=== PATIENT | female | born 1940 | race Caucasian/White ===

== ENCOUNTER 2016-08-09 07:51 | Day surgery (SDC) | payer MEDICARE ==
[~2016-08-09 07:51] MED LIST: RINGERS SOLUTION,LACTATED 1,000 ML IV PRN
--- OUTSIDE RECORDS SUMMARY | 2016-08-09 07:55 | XMS REPORT | Continuity of Care Document ---
:1940 Author Organization [facility] ([facility]) [place] [address] Phone [phone] Care Team Providers Name Role Phone Mar Rodriguez Primary Care Provider [phone] Source Comments This disclosure is being made pursuant to the Care Everywhere program, applicable federal and state laws, and may not contain all informaitonavailable regarding this patient.[facility] ([facility]) Active Allergies and Adverse Reactions Allergen Noted Date Severity Reactions Comments Bupropion Hcl 09/01/2011 OTHER tremors Cilostazol 03/15/2014 Angioedema,Anaphylaxis Codeine 09/01/2011 Nausea & Vomiting Morphine 03/15/2014 Nausea & Vomiting Sertraline 09/01/2011 OTHER tremors Current Medications Prescription Sig. Disp. Refills Start Date End Date Status ALPRAZolam 0.25 mg Take 0.5 mg by mouth Active tablet daily as needed pyridoxine (VITAMIN Take 100 mg by mouth Active B-6) 100 mg tablet daily. Vitamin D3-Menaquinone Take by mouth 2 Active 7 (D3 + K2 DOTS) times daily. 1000-90 unit-mcg TbDL [id number]-dyn-epa-fish Take 2,000 mg by Active oil (OMEGA 3) 350-400 mouth daily. mg Cap lisinopril 40 mg Take 40 mg by mouth Active tablet daily. glipiZIDE 5 mg tablet Take 5 mg by mouth Active daily. levothyroxine 150 mcg Take 175 mcg by mouth Active tablet every morning before breakfast. docusate (COLACE) 100 Take 1 Cap by mouth 2 60 Cap 0 04/10/2014 Active mg capsule times daily. Indications: CONSTIPATION cinnamon bark Take 500 mg by mouth Active (CINNAMON) 500 mg daily capsule FLUoxetine 10 mg 11/18/2015 Active tablet tiZANidine 4 mg tablet Take 4 mg by mouth 2 Active times daily. LYSINE PO Active TURMERIC (BULK) NA Active BOSWELLIA KEN Active EXTRACT (BOSWELLIA KEN XT (BULK) NA ) magnesium citrate PO Active aspirin 81 mg EC Take 81 mg by mouth Active tablet daily. Active Problems Problem Noted Date Neck mass 04/09/2014 DM (diabetes mellitus) 04/09/2014 HTN (hypertension) 04/09/2014 Hypothyroidism 03/19/2014 Preop cardiovascular exam 03/19/2014 Atypical chest pain 03/19/2014 Essential hypertension 03/19/2014 Squamous papilloma 03/15/2014 Oral lesion 09/01/2011 Social History Tobacco Use Types Packs/Day Years Used Date Former Smoker Cigarettes 0.5 5 Quit: 08/31/2004 Smokeless Tobacco: Never Used Tobacco Cessation:Counseling Given: Yes Comments: Alcohol Use Drinks/Week oz/Week Comments No Last Filed Vital Signs Vital Sign Reading Time Taken Blood Pressure 125/60 01/14/2016 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 Pulse 72 01/14/2016 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 Temperature 37 C (98.6 F) 01/14/2016 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 Respiratory Rate 14 04/10/2014 8:00 AM TYPEWRITER REPAIRER Height 1.689 m (5' 6.5") 01/14/2016 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 Weight 85.4 kg (188 lb 4.4 oz) 01/14/2016 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 Body Mass Index 29.94 01/14/2016 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 Oxygen Saturation 93% 04/10/2014 8:00 AM TYPEWRITER REPAIRER Plan of Care Health Maintenance Due Date Last Done Comments Hepatitis B Vaccine (1 of 3 - Primary Series) 1940 Tdap Vaccine 01/26/1951 DIABETIC: Cholesterol 1959 Diabetic: Hdl 1959 DIABETIC: Hemoglobin A1C 1959 Diabetic: Ldl 1959 DIABETIC: Microalbumin 1959 DIABETIC: Triglycerides 1959 Td Vaccine 1959 Mammogram 1981 Colonoscopy 1991 Zoster Vaccine 2001 Osteoporosis Screening (DXA Bone Density) 2006 Pneumococcal Vaccine (1 of 2 - PCV13) 2006 DIABETIC: Foot Exam 03/19/2014 DIABETIC: Retinal Eye Exam 03/19/2014 Influenza Vaccine: Seasonal (#1) 10/06/2015 Results from Last 3 Months Not on file
[2016-08-09] MEDS ORDERED: RINGERS SOLUTION,LACTATED 1,000 ML IV ONE (08:37)
[2016-08-09] MEDS ORDERED: RINGERS SOLUTION,LACTATED 1,000 ML IV PRN (09:32)
[2016-08-09 10:46] VITALS: BP 131/83
--- NOTE | 2016-08-09 16:40 | OR ---
Operative Report - Dictated Report Narrative: OPERATIVE REPORT DATE OF OPERATION: 08/09/2016 PREOPERATIVE DIAGNOSIS: No prior dedicated colon studies POSTOPERATIVE DIAGNOSIS: 3 mm polyps in the cecum, at 60 cm, at 45 cm ( pathology pending). Diverticulosis OPERATION: Colonoscopy with hot biopsy forceps polypectomies 3 SURGEON: Shae Anguiano MD ANESTHESIA: DIXON Fish CRNA INDICATIONS FOR PROCEDURE: The patient is a 76-year-old female referred by Cordell SHELTON. She has had no previous complete dedicated colon studies. She has had abdominal discomfort FINDINGS: Diverticulosis. 3 mm polyp in the cecum, at 60 cm, at 45 cm ( pathology pending) NARRATIVE OF PROCEDURE: The patient was identified in the holding area, and prior to the administration of anesthetic, a multidisciplinary timeout was observed. With the patient in the left lateral position and after the administration of intravenous sedation, the perineum was inspected. There was no evidence of pilonidal disease or skin breakdown. The external appearance of the anus was normal. Sphincter tone was good. The flexible fiberoptic colonoscope was inserted into the rectum which was insufflated with air. The rectal mucosa and submucosal vascular pattern appeared normal, the prep was seen to be complete. The scope was advanced through the sigmoid colon, which contained numerous large non-impacted noninflamed diverticular openings. The scope was advanced up the descending colon, and around the splenic flexure where the triangular haustral architecture of the transverse colon was seen. The scope was advanced across the transverse colon, around the hepatic flexure to the cecum, where the confluence of tenia and the ileocecal valve were identified. The mucosa at this level appeared normal. There was a very small area of polypoid change which was biopsied and thoroughly destroyed with electrocautery. The site was seen to be complete and hemostatic. The scope was then slowly withdrawn in a circular fashion so that all aspects of colonic mucosa were inspected. There were 3 mm polyps at 60 cm and 45 cm. These were biopsied and then thoroughly destroyed with electrocautery. The sites were seen to be complete and hemostatic. The colon was relatively normal in course and caliber. The haustral architecture appeared well preserved throughout with no evidence of external compression. The mucosa and submucosal vascular pattern appeared normal, specifically there was no gross evidence to suggest colitis or inflammatory bowel disease and no AV malformations were seen. The diverticulosis was moderate in degree and confined primarily in the sigmoid colon. No additional polyps were encountered. The scope was gradually withdrawn to the level of the rectum. As much insufflated air as possible was removed. The scope was withdrawn from the patient and the procedure terminated. The patient tolerated the anesthetic and procedure well without complication and was transferred back to the ambulatory surgery area awake and in stable condition. The patient remained stable throughout a period of postoperative observation. She denied abdominal discomfort, was able to tolerate by mouth intake, and was up without assistance. I shared the operative findings with the patient and she was given copies of the photographs which appear in the medical record. She was discharged home with instructions not to engage in hazardous activity today , but may resume normal activity tomorrow, and advance diet as tolerated. She is to continue those medications as listed in the history and physical exam. I made arrangements to contact her with the biopsy reports and will make additional recommendations for treatment and follow-up based upon those results. A pamphlet on diverticular disease was reviewed with her and given to her and a continued trial of Benefiber and/or MiraLAX recommended. Reviewed and electronically signed
== END 2016-08-09 07:52 | disposition home or self-care (01) ==
LOC: AMB 07:51
PROVIDERS: ATTEND Surgery
PROC: 0DBE8ZX Excision of Large Intestine, Via Natural or Artificial Opening Endoscopic, Diagnostic (ICD-10-PCS; 2016-08-09)
PROC: 0DBH8ZX Excision of Cecum, Via Natural or Artificial Opening Endoscopic, Diagnostic (ICD-10-PCS; principal; 2016-08-09 08:50)
DX: Z12.11 Encounter for screening for malignant neoplasm of colon (principal); D12.0 Benign neoplasm of cecum; K57.30 Diverticulosis of large intestine without perforation or abscess without bleeding; K63.5 Polyp of colon; I10 Essential (primary) hypertension; E11.9 Type 2 diabetes mellitus without complications; J44.9 Chronic obstructive pulmonary disease, unspecified; E03.9 Hypothyroidism, unspecified; F41.1 Generalized anxiety disorder; F17.210 Nicotine dependence, cigarettes, uncomplicated; Z68.31 Body mass index [BMI] 31.0-31.9, adult